=== PATIENT | male | born 1985 | race Caucasian/White ===

== ENCOUNTER 2021-02-19 21:51 | Emergency (ER) | payer MEDICAID ==
[~2021-02-19] VITALS: Ht 175.3 cm; Wt 102.1 kg
[2021-02-19 22:04] VITALS: BP 153/101
--- NOTE | 2021-02-19 22:07 | NUR ---
TO LOBBY A/W BED AMBULATORY
--- NOTE | 2021-02-19 23:38 | NUR ---
Pt ambulated to bed 12.
--- NOTE | 2021-02-20 | NUR ---
RECEIVED IN BED 12 WITH C/O N/V.
[2021-02-20] MEDS ORDERED: DICYCLOMINE HCL LIQUID 20 MG, ALUMINUM HYD/MAG/SIMETHICONE 30 ML, LIDOCAINE VISCOUS 2% ... PO ONE ×3 (00:15)
[2021-02-20] MEDS ORDERED: KETOROLAC 30 MG/ML VIAL IM ONE (00:15)
[2021-02-20] MEDS ORDERED: ONDANSETRON 4 MG ODT PO ONE (00:15)
[2021-02-20] MEDS ORDERED: cefTRIAXone 500 MG in LIDOCAINE MPF 1% 1 ML IM ONE (00:15)
[2021-02-20] MEDS ORDERED: DICYCLOMINE HCL LIQUID 10 MG/5 ML UDC ONE (00:28)
[2021-02-20] MEDS ORDERED: ALUMINUM HYD/MAG/SIMETHICONE 30 ML UDC ONE (00:28)
[2021-02-20] MEDS ORDERED: cefTRIAXone 500 MG VIAL ONE (00:28)
[2021-02-20] MEDS ORDERED: LIDOCAINE MPF 1% 5 ML ONE (00:29)
[2021-02-20 00:45] LABS: BASOPHILS % (AUTO) 0.2 % (0.0-2.0); EOSINOPHILS # (AUTO) 0.1 K/uL (0-0.4); EOSINOPHILS % (AUTO) 0.6 % (0.0-4.0); HEMATOCRIT 48.6 % (36-52); HEMOGLOBIN 16.2 g/dL (12.0-18.0); LYMPHOCYTES # (AUTO) 0.9 K/uL (2.0-11.5); LYMPHOCYTES % (AUTO) 5.5 % (20.5-51.1); MEAN CORPUSCULAR HEMOGLOBIN 28 pg (27-31); MEAN CORPUSCULAR HGB CONC 33 g/dL (33-37); MEAN CORPUSCULAR VOLUME 84.8 fL (80-94); MONOCYTES # (AUTO) 0.9 K/uL (0.8-1.0); MONOCYTES % (AUTO) 5.8 % (1.7-9.3); NEUTROPHILS # (AUTO) 13.7 K/uL (1.8-7.7); NEUTROPHILS % (AUTO) 87.9 % (42.2-75.2); PLATELET COUNT (AUTO) 303 K/uL (140-450); RED BLOOD CELL COUNT(AUTO) 5.73 MIL/uL (4.20-6.10); RED CELL DISTRIBUTION WIDTH 14.4 % (11.6-13.7); WHITE BLOOD COUNT (AUTO) 15.6 K/uL (4.8-10.8)
[2021-02-20 01:02] LABS: ANION GAP 10.4 (8-16); CARBON DIOXIDE 31.1 mmol/L (21-32); CREATININE 1.4 mg/dL (0.6-1.3); POTASSIUM 4.5 mmol/L (3.5-5.1); TOTAL BILIRUBIN 0.2 mg/dL (0.0-1.0)
[2021-02-20] MEDS ORDERED: MAG355OR2 PO (01:30)
[2021-02-20] MEDS ORDERED: VIB100 PO (01:30)
[2021-02-20] MEDS ORDERED: ONDA-24 PO (01:30)
[2021-02-20] MEDS ORDERED: FAMO-90 PO (01:30)
[2021-02-20 01:45] VITALS: BP 153/101
--- NOTE | 2021-02-20 01:45 | NUR ---
Patient discharged with v/s stable. Written and verbal after care instructions given and explained. Patient alert, oriented and verbalized understanding of instructions. Ambulatory with steady gait. All questions addressed prior to discharge. ID band removed. Patient advised to follow up with PMD. Rx of PEPCID, ZOFRAN, DOXYCYCLINE given. Patient educated on indication of medication including possible reaction and side effects. Opportunity to ask questions provided and answered.
== END 2021-02-20 01:45 | disposition home or self-care (01) ==
LOC: MED 21:51
DX: R10.32 Left lower quadrant pain (principal); R11.2 Nausea with vomiting, unspecified; R19.7 Diarrhea, unspecified; Z11.3 Encounter for screening for infections with a predominantly sexual mode of transmission
CPT/HCPCS: 36415; 80053; 83690; 85025; 96372; 99284; J0696; J1885; J2001; Q0162

== ENCOUNTER 2022-08-11 21:57 | Emergency (ER) | payer MEDICAID ==
[~2022-08-11] VITALS: Ht 175.3 cm; Wt 99.8 kg
[~2022-08-11 21:57] MED LIST: FAMO-90 PO; MAG355OR2 PO; ONDA-188 PO; VIB100 PO
[2022-08-11 23:09] VITALS: BP 146/90
--- NOTE | 2022-08-12 04:51 | NUR ---
TO BED 1 FROM LOBBY
[2022-08-12] MEDS ORDERED: KETOROLAC 30 MG/ML VIAL IVP ONE (05:05)
[2022-08-12] MEDS ORDERED: NACL 0.9% 1,000 ML IV SCH (05:05)
--- NOTE | 2022-08-12 05:20 | NUR ---
PT MOVED TO ER BED 12
--- NOTE | 2022-08-12 05:20 | NUR ---
ABDOMINAL PAIN WITH VOMITING X 2 WEEKS. HAS HAD SIMILAR EPISODES IN THE PAST, PT SAID SHE HAD 6 X TIMES OF NAUSEA
--- NOTE | 2022-08-12 05:21 | NUR ---
6 TIMES OF NAUSEA AND VOMITTING
[2022-08-12 06:53] LABS: BASOPHILS % (AUTO) 0.1 % (0.0-2.0); EOSINOPHILS # (AUTO) 0.1 K/uL (0-0.4); HEMATOCRIT 46.5 % (36-52); HEMOGLOBIN 15.3 g/dL (12.0-18.0); LYMPHOCYTES # (AUTO) 1.5 K/uL (2.0-11.5); LYMPHOCYTES % (AUTO) 10.7 % (20.5-51.1); MEAN CORPUSCULAR HEMOGLOBIN 28 pg (27-31); MEAN CORPUSCULAR HGB CONC 33 g/dL (33-37); MONOCYTES % (AUTO) 7.3 % (1.7-9.3); NEUTROPHILS # (AUTO) 11.1 K/uL (1.8-7.7); NEUTROPHILS % (AUTO) 80.9 % (42.2-75.2); PLATELET COUNT (AUTO) 271 K/uL (140-450); RED BLOOD CELL COUNT(AUTO) 5.54 MIL/uL (4.20-6.10); RED CELL DISTRIBUTION WIDTH 14.9 % (11.6-13.7); WHITE BLOOD COUNT (AUTO) 13.8 K/uL (4.8-10.8)
[2022-08-12 06:55] LABS: APPEARANCE,URINE CLEAR (CLEAR); BILIRUBIN,URINE NEGATIVE (NEGATIVE); BLOOD, URINE NEGATIVE (NEGATIVE); COLOR,URINE YELLOW (YELLOW); LEUKOCYTE ESTERASE ,URINE TRACE (NEGATIVE); NITRITE, URINE NEGATIVE (NEGATIVE); PH,URINE 8.5 (5.0-9.0); UGLUCOSE NEGATIVE (NEGATIVE)
[2022-08-12 07:01] LABS: RBC,URINE NONE SEEN /HPF (0-5)
[2022-08-12 07:07] LABS: CARBON DIOXIDE 30.6 mmol/L (21-32); CREATININE 1.2 mg/dL (0.6-1.3); POTASSIUM 3.6 mmol/L (3.5-5.1); TOTAL BILIRUBIN 0.5 mg/dL (0.0-1.0)
[2022-08-12 07:44] VITALS: BP 138/94
--- NOTE | 2022-08-12 07:46 | NUR ---
Patient discharged with v/s stable. Written and verbal after care instructions given and explained. Patient verbalized understanding. Ambulatory with steady gait. All questions addressed prior to discharge. Advised to follow up with PMD.
== END 2022-08-12 04:51 | disposition home or self-care (01) ==
LOC: MED 21:57
DX: R11.2 Nausea with vomiting, unspecified (principal); R10.9 Unspecified abdominal pain; Z79.899 Other long term (current) drug therapy; Z79.2 Long term (current) use of antibiotics
CPT/HCPCS: 36415; 80053; 81001; 83690; 85025; 87086; 96361; 96374; 99283; J1885; J7030

== ENCOUNTER 2023-02-08 11:21 | Emergency (ER) | payer MEDICAID ==
[~2023-02-08] VITALS: Ht 172.7 cm; Wt 86.2 kg
[2023-02-08 11:50] VITALS: BP 122/77; PULSE 107; RESP 20; TEMP 98.1; O2SAT 97
[2023-02-08 12:42] VITALS: BP 122/77; PULSE 107; RESP 20; TEMP 98.1; O2SAT 97
[2023-02-08] MEDS ORDERED: IBUP-1842 PO (13:26)
[2023-02-08] MEDS ORDERED: BACI-418 TP (13:26)
== END 2023-02-08 13:36 | disposition home or self-care (01) ==
LOC: MED 11:21
DX: L91.0 Hypertrophic scar (principal); J45.909 Unspecified asthma, uncomplicated; Z79.899 Other long term (current) drug therapy
CPT/HCPCS: 99282

== ENCOUNTER 2023-09-09 11:05 | Emergency (ER) | payer MEDICAID ==
[~2023-09-09] VITALS: Ht 175.3 cm; Wt 90.7 kg
[~2023-09-09 11:05] MED LIST changes: +BACI-418 TP; +IBUP-1842 PO
[2023-09-09 11:12] VITALS: BP 128/74; PULSE 104; RESP 18; TEMP 96.9; O2SAT 100
[2023-09-09] MEDS ORDERED: CEPH500C16 PO (14:12)
[2023-09-09 14:52] VITALS: BP 128/74; PULSE 104; RESP 18; TEMP 96.9; O2SAT 100
== END 2023-09-09 14:52 | disposition home or self-care (01) ==
LOC: MED 11:05
DX: L98.8 Other specified disorders of the skin and subcutaneous tissue (principal); J45.909 Unspecified asthma, uncomplicated; Z79.1 Long term (current) use of non-steroidal anti-inflammatories (NSAID); Z79.899 Other long term (current) drug therapy
CPT/HCPCS: 90471; 90715; 99283

== ENCOUNTER 2023-10-08 14:07 | Emergency (ER) | payer MEDICAID ==
[~2023-10-08] VITALS: Ht 175.3 cm; Wt 90.7 kg
[~2023-10-08 14:07] MED LIST changes: +CEPH500C16 PO
[2023-10-08 14:10] VITALS: BP 129/87; PULSE 120; RESP 18; TEMP 98.1; O2SAT 96
[2023-10-08 14:15] VITALS: O2SAT 96
[2023-10-08] MEDS: KETOROLAC 30 MG/ML VIAL IM ONE (14:32)
[2023-10-08] MEDS: ONDANSETRON 4 MG ODT PO ONE (14:33)
[2023-10-08] MEDS ORDERED: cefTRIAXone 500 MG VIAL ONE (14:42)
[2023-10-08] MEDS ORDERED: LIDOCAINE MPF 1% 5 ML ONE (14:42)
[2023-10-08] MEDS: cefTRIAXone 500 MG in LIDOCAINE MPF 1% 1 ML IM ONE (14:50)
[2023-10-08 16:07] LABS: APPEARANCE,URINE CLEAR (CLEAR); BILIRUBIN,URINE 1+ (NEGATIVE); BLOOD, URINE TRACE-I (NEGATIVE); COLOR,URINE YELLOW (YELLOW); LEUKOCYTE ESTERASE ,URINE 1+ (NEGATIVE); NITRITE, URINE NEGATIVE (NEGATIVE); PROTEIN,URINE 1+ (NEGATIVE); UGLUCOSE NEGATIVE (NEGATIVE); UROBILINOGEN,URINE 0.2 EU/dL (0.2 - 1)
[2023-10-08] MEDS ORDERED: ACET-10509 PO (16:37)
[2023-10-08] MEDS ORDERED: DOXY-690 PO (16:37)
[2023-10-08] MEDS ORDERED: IBUP-2213 PO (16:37)
[2023-10-08 16:43] LABS: BACTERIA,URINE FEW /HPF (None Seen); SQUAMOUS EPITHELIAL CELL,UR 0-3 (FEW) /LPF (0-3 (FEW))
[2023-10-08 16:44] LABS: MUCUS,URINE None Seen /LPF (None Seen); TRICHOMONAS,URINE None Seen /HPF (None Seen); WHITE BLOOD CELL CASTS,URINE None Seen /LPF (None Seen); YEAST,URINE None Seen /HPF (None Seen)
[2023-10-08 16:49] LABS: ICTOTEST NEGATIVE (NEGATIVE)
[2023-10-08] MEDS ORDERED: NACL 0.9% 1,000 ML IV SCH (16:55)
[2023-10-08 17:06] VITALS: PULSE 98
[2023-10-09 11:55] LABS: NEISSERIA GONORRHOEAE PCR Detected (NOTdetected)
== END 2023-10-08 17:06 | disposition home or self-care (01) ==
LOC: MED 14:07
DX: N45.1 Epididymitis (principal); N39.0 Urinary tract infection, site not specified; J45.909 Unspecified asthma, uncomplicated; Z79.899 Other long term (current) drug therapy
CPT/HCPCS: 76870; 81001; 87086; 87491; 96372; 99285; J0696; J1885; J2001; Q0162